=== PATIENT | female | born 1980 | race American Indian/Alaskan Native ===

== ENCOUNTER 2016-08-09 18:42 | Emergency (ER) | payer SELFPAY ==
[2016-08-09 19:06] VITALS: RESP 20; TEMP 96.4
[2016-08-09] MEDS ORDERED: TRIAMCINOLONE ACETONIDE 40 MG/1 ML IM ONE (19:40)
--- NOTE | 2016-08-09 19:47 | PDOC ---
Allergy Symptoms HPI - General Chief Complaint: Genitourinary Complaint Stated Complaint: SEVERE ENVIRONMENTAL ALLERGY S/S Date Seen by Provider: 08/09/16 Time Seen by Provider: 19:44 - History of Present Illness Initial Comments: Patient is having remarkable allergy symptoms including itchy throat runny nose some itching in her ears sneezing and this is not responding well to Benadryl and Zyrtec and Flonase. She has had have Kenalog injections in the past on a seasonal basis and she is requesting this today. She denies any signs or symptoms consistent with infection anywhere she has not had problems with steroids in the past. She does not take steroids chronically. She is not a frequent user of steroids at all. - Patient Home Medications Home Medications: Home Medications NK [No Home Medications Reported] 02/25/13 Diphenhydramine HCl 25 mg PO QHS #30 tab 10/29/15 Ibuprofen/Diphenhydramine [Advil Pm Caplet] 2.5 tab PO QHS tab 10/29/15 Citalopram Hydrobromide [Celexa] 1 tab PO DAILY #30 tab 05/15/16 Bupropion HCl [Bupropion Hcl Sr] 1 tab PO QD #30 tab 07/07/16 Naltrexone HCl 50 mg PO DAILY #30 tab 07/07/16 - Patient Allergies Allergies/Adverse Reactions: Allergies Allergy/AdvReac Type Severity Reaction Status Date / Time No Known Allergies Allergy Verified 08/09/16 18:57 Past Medical History - heen HEENT History: Denies History Cardiovascular History: Denies History Respiratory History: Denies History Gastrointestinal History: Denies History Genitourinary History: Denies History Endocrine History: Denies History Musculoskeletal History: Denies History Prosthesis or Implant: No Neurological History: Denies History Blood Disorders: Denies History Psychiatric History: Denies History History of Sexually Transmitted Diseases: No Female Reproductive History: Hysterectomy Cancer History: Denies History In Past Year Been Physically Harmed or Verbally Threatened: No History of MDRO: No History of Other Communicable Diseases: No History of Exposure to Communicable Disease: No Tobacco Use: Never Smoker Alcohol Use: Occasionally Substance Use Type: None Previous Surgical History: Yes Type / Date of Surgery: hysterectomy Anesthesia Reactions: No Malignant Hyperthermia: No Significant Family History: No pertinent family hx Past Medical History Reviewed: Reviewed - No Changes ROS - Limitations ROS Limitations: No Limitations Constitution: REPORTS: Denies Symptoms Cardiovascular: REPORTS: Denies Cardiac Symptoms Neurological: REPORTS: Denies Neuro Symptoms Allergy Symptoms Physical Exam - General Appearance General Appearance: POSITIVE: Alert, Cooperative - HEENT Head / Face: POSITIVE: Atraumatic, No Facial Swelling Eyes: POSITIVE: Inspection Normal Ears: POSITIVE: Ears Normal Inspection Nose: POSITIVE: Rhinorrhea, Mucosal Swelling - Neck Neck: POSITIVE: Normal Inspection - Respiratory Respiratory: POSITIVE: No Respiratory Distress - Cardiovascular Cardiovascular: POSITIVE: Regular Rate and Rhythm Allergy Symptoms Progress - Patient's Progress MDM / ED Course: This patient does look to be pretty miserable from her environmental allergies. I have discussed the pros and cons of Kenalog and return to go ahead and give her a dose of Kenalog to try to get her over the home.. I've encouraged her to use either Zyrtec or Benadryl but not a lot of each of them. She wants to use Zyrtec. I told her she could use that twice a day that that she will be fine. She's also been increase her Flonase to twice a day dosing for a few days or week to try to help with her rhinitis symptoms as well. She is also encouraged to talk with her primary care provider about allergy testing and immunotherapy. Patient Care Time - Estimated PCT Patient Care Time (In Minutes): 15 Vital Signs - Recent Vital Signs Vital Signs: Vital Signs (Last 8 hours) Temp Pulse Resp BP Pulse Ox 08/09/16 18:49 96.4 F L 68 20 98/57 93 - VS Reviewed Vital Signs Reviewed: Yes Discharge Clinical Impression: Environmental allergies Allergic rhinitis Qualifiers: Allergic rhinitis trigger: pollen Allergic rhinitis seasonality: seasonal Qualifier Code: (J30.1) Allergic rhinitis due to pollen Discharge Disposition: Discharged to Home Condition: Stable Patient Instructions Given at Discharge: Allergic Rhinitis (ED), Allergies (ED) Additional Instructions: Follow-up with your primary care doctor in the next couple of weeks and discuss allergy testing and immunotherapy Use [id number] Zyrtec once to twice daily Continue your Flonase you may increase the dose over the next 1-2 weeks to 2 sprays each nostril twice a day then return back to your once a day dosing Consider nasal rinses with preparations available at your pharmacy please ask the pharmacist and they can steer you towards the best nasal rinses. Follow Up With: ANIBAL MEJIAS [Primary Care Provider] -
== END 2016-08-09 20:01 | disposition home or self-care (01) ==
LOC: ER 18:42
DX: J30.1 Allergic rhinitis due to pollen (principal); R06.7 Sneezing
CPT/HCPCS: 96372; 99282